=== PATIENT | female | born 1935 | race Caucasian/White ===

== ENCOUNTER 2018-09-01 22:50 | Inpatient (IN) | payer MEDICARE, BC, MEDICAID ==
[~2018-09-01] VITALS: Ht 172.7 cm; Wt 84.3 kg
--- NOTE | ~2018-09-01 | PN ---
PATIENT:VALENTIN MONTILLA MEDICAL RECORD: [id number] LOCATION:LINDA David112 ADMISSION DATE: 09/01/18 PROGRESS NOTE DATE OF SERVICE: 09/03/2018 SUBJECTIVE: Ms. Montilla is an 83-year-old female with just a 1-year history of dementia despite her what is seemingly long-term difficulties. foster care worker spoken to daughter yesterday, who reports basically in the last 2 years a couple of nursing homes, which the patient failed miserably because of aggression and she now is in [facility]. The patient had worked as an CAMPAIGN ASSISTANT. She did not have a formal psych history, but family described her as very controlling and irritable. She continues to be verbally aggressive, cursing, demanding. As she does have a very constant supervision, she seems to be less able at least to be physically aggressive, but seems to be attempting so less as well. She slept 4.25 hours last night, eating 125% and 75%. Last bowel movement on the . OBJECTIVE: LATEST VITAL SIGNS: 98.1, 75, 20, 140/79, and 96%. ASSESSMENT: Unchanged. PLAN: Continue current treatment plan. Continue to monitor for agitation and aggression, which are very much present. Risperdal was changed to Geodon yesterday. Would advise going up on that as necessary to control the patient's behavior and as her Depakote trough, which is 55.4, there is room to increase that as well. Discussed with nursing. Chart reviewed and patient interviewed. TRANSINT:[id number] Voice Confirmation ID: [id number] DOCUMENT ID: [id number] CAHDD MOYER MD CC: [id number] DICTATION DATE: 09/03/18 0746 DRY HEAT CABINET ATTENDANT: 09/03/18 1431 ADM IN [facility] [address] [place] [address]
--- NOTE | ~2018-09-01 | PN ---
PATIENT:VALENTIN YEUNG [place] MEDICAL RECORD: [id number] LOCATION:LINDA David112 ADMISSION DATE: 09/01/18 PROGRESS NOTE DATE OF SERVICE: 09/02/2018 No dictation. TRANSINT:[id number] Voice Confirmation ID: [id number] DOCUMENT ID: [id number] CHADD MOYER MD CC: [id number] DICTATION DATE: 09/02/18 1627 FURNITURE CLEANER: 09/02/181953 ADM IN [place] [id number] [place] [address]
[~2018-09-01 22:50] MED LIST: CENTRUM COMPLE1 EACH PO; CYMBALTA30 MG PO; FOLIC ACID1 MG PO; MIRALAX17 GM PO; PROTONIX40 MG PO; SYNTHROID100 MCG PO; VOLTAREN75 MG PO; XANAX0.5 MG PO; ZOLOFT100 MG PO
[2018-09-01] MEDS ORDERED: TYLENOL650 MG RC (23:09)
[2018-09-01] MEDS ORDERED: SCOT-TUSSI10 MG/5 ML PO (23:10)
[2018-09-01] MEDS ORDERED: BENADRYL25 MG PO (23:12)
[2018-09-01] MEDS ORDERED: BUSPIRONE HCL7.5 MG PO (23:12)
[2018-09-01] MEDS ORDERED: CELEBREX 100 M100 MG PO (23:13)
[2018-09-01] MEDS ORDERED: DEPAKOTE125 MG PO ×2 (23:15→23:16)
[2018-09-01] MEDS ORDERED: DONEPEZIL HCL10 MG PO (23:16)
[2018-09-01] MEDS ORDERED: DULCOLAX10 MG/SUPP RC (23:17)
[2018-09-01] MEDS ORDERED: FERROUS SULFAT325 MG PO (23:18)
[2018-09-01] MEDS ORDERED: GENTAMICIN 0.3 %5 ML EACH EYE (23:21)
[2018-09-01] MEDS ORDERED: ADVIL200 MG PO (23:22)
[2018-09-01] MEDS ORDERED: FUROSEMIDE20 MG PO (23:22)
[2018-09-01] MEDS ORDERED: MAALOX ADVANCE355 ML PO (23:24)
[2018-09-01] MEDS ORDERED: IMODIUM2 MG PO (23:24)
[2018-09-01] MEDS ORDERED: MILK OF MAGNESI30 ML PO (23:25)
[2018-09-01] MEDS ORDERED: PHENERGAN25 M1 PO (23:26)
[2018-09-01] MEDS ORDERED: PHENERGAN25 MG RC (23:26)
[2018-09-01] MEDS ORDERED: REMERON15 MG PO (23:27)
[2018-09-01] MEDS ORDERED: RISPERDAL1 MG PO (23:27)
[2018-09-01] MEDS ORDERED: ACETAMINOPHEN325 MG PO (23:28)
[2018-09-01] MEDS ORDERED: ASCORBIC ACID500 MG PO (23:29)
[2018-09-01] MEDS ORDERED: ZOFRAN4 MG PO (23:29)
--- NOTE | 2018-09-02 00:40 | NUR ---
PATIENT ARRIVE VIA AMBULANCE FROM [facility] IN [facility] AT 22:00, PATIENTY HAD BECOME AGGRESSIVE WITH OTHER RESIDENTS, TELEPHONE CONSENT FROM DAUGHTER AND XUAN VERDUGO, CODE WORD IS 'QUILT', CODE STATUS IS DNR, VITAL SIGNS ON ARRIVAL T 98.0. BP 132/62. P 82. R 18, O2 93% ON RA, PATIENT WAS SLEEPING WHEN SHE ARRIVED AND DID NOT WAKE UP WHEN TRANSFERRED TO BED, WILL CONTINUE TO MONITOR.
[2018-09-02 02:00] VITALS: BP 132/62; BMI 23.6
--- NOTE | 2018-09-02 07:25 | NUR ---
PT WAS CURSING AT OTHER PATIENTS, AT STAFF. COMBATIVE WITH STAFF. SPITTING AND THREATENING TO HIT OTHER PATIENTS. WANDERING IN THE HALLWAY EXITING SEEKING. ATIVAN 0.5 MG IM GIVEN PER DR. CASTELLANOS ORDER. WILL REASSESS Q 1 HOUR. WILL CONT PLAN OF CARE.
[2018-09-02 07:41] VITALS: BP 185/76
[2018-09-02 07:45] LABS: BASOPHILS 0.6 % (0-2); EOSINOPHILS 8.7 % (0-7); HEMATOCRIT 31.5 % (36.0-48.0); HEMOGLOBIN 9.8 g/dL (12-16); LYMPHOCYTES 36.6 % (15-50); MCH 27.8 pg (26.0-34.0); MCHC 31.1 g/dL (31.0-37.0); MCV 89.2 fL (80.0-100.0); MEAN PLATELET VOLUME 10.3 fL (7.4-10.4); MONOCYTES 6.1 % (2-11); RBC 3.53 10x6/uL (4.00-5.40); RDW 14.2 % (11.5-14.5); WBC 3.1 10x3/uL (4.8-10.8)
[2018-09-02 07:52] LABS: PLATELET COUNT 146 10x3/uL (130-400)
[2018-09-02 08:08] LABS: ALBUMIN 2.4 g/dL (3.4-5.0); ALKALINE PHOSPHATASE 44 U/L (46-116); ALT (SGPT) 17 U/L (10-68); BILIRUBIN - TOTAL 0.19 mg/dL (0.2-1.3); CALC OSMOLALITY 290 mosm/kg (275-300); CALCIUM 8.1 mg/dL (8.5-10.1); CARBON DIOXIDE 33.6 mmol/L (21.0-32.0); CHLORIDE - SERUM 108 mmol/L (98-107); CHOL - HDL RATIO 2.2 ratio (2.3-4.1); CHOLESTEROL, TOTAL 157 mg/dL (0-200); CREATININE - SERUM 0.7 mg/dL (0.6-1.3); GLUCOSE 79 mg/dL (74-106); HDL CHOLESTEROL 70 mg/dL (32-96); LDL CHOLESTEROL 74 mg/dL (0-100); LDL-HDL RATIO 1.1 ratio (1.5-3.5); POTASSIUM - SERUM 4.1 mmol/L (3.5-5.1); PROTEIN - SERUM 5.4 g/dL (6.4-8.2); SODIUM 143 mmol/L (136-145); THYROID STIMULATING HORMONE 7.15 uIU/mL (0.36-3.74); TRIGLYCERIDE 65 mg/dL (30-200); UREA NITROGEN 31 mg/dL (7-18); eGFR NON AFRICAN AMERICAN 84 mL/min (90-120)
--- NOTE | 2018-09-02 10:18 | NUR ---
The patient is spitting and she is screaming and she is acting out, turning the table over. Provided Ativan 0.5 mg IM in right hip.
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
--- NOTE | 2018-09-02 17:43 | NUR ---
PATIENT SITTING IN THE DAY AREA WITH PEERS. RESP EVEN AND NONLABORED. NO ACUTE DISTRESS NOTED. PAITENT BEHAVIOR HAS BEEN MORE CALM SINCE GEODON 20 MG IM WAS GIVEN EARLIER IN SHIFT. PT HAS BEEN MED COMPLAINT. SWALLOWED MEDICATION VERY WELL. PT IN A RECLINER CHAIR. ALARM IN PLACE AND ACTIVE. PT ATE MEALS. WILL CONT PLAN OF CARE. WILL CONT TO MONITOR Q 15 MINS.
[2018-09-02 20:00] VITALS: BP 140/79
[2018-09-02 22:04] VITALS: BMI 24.4
--- NOTE | 2018-09-02 23:00 | NUR ---
B) Patient is alert and oriented to self, restless and needy, screaming out for help from bad dreams, I) Administered scheduled medications as ordered, monitored for safety R) Mediation compliant, difficult to communicate with P) Continue plan of care.
[2018-09-03 07:18] LABS: RAPID PLASMA REAGIN Non Reactive (Non Reactive)
--- NOTE | 2018-09-03 07:20 | NUR ---
REC'D PT LAYING IN BED WITH EYES CLOSED. RESP EVEN AND NONLABORED. NO ACUTE DISTRESS NOTED. NO BEHAVIORS NOTED. BED ALARM IN PLACE AND ACTIVE. SIDE RAIL UP 2X. CL IN REACH. WILL CONT TO MONITOR Q 15 MINS FOR SAFETY. WILL CONT PLAN OF CARE.
[2018-09-03 08:03] LABS: BASOPHILS 0.8 % (0-2); EOSINOPHILS 4.9 % (0-7); HEMATOCRIT 36.5 % (36.0-48.0); HEMOGLOBIN 11.6 g/dL (12-16); IMMATURE GRANULOCYTES 0.2 % (0-5); LYMPHOCYTES 33.8 % (15-50); MCHC 31.8 g/dL (31.0-37.0); MEAN PLATELET VOLUME 10.7 fL (7.4-10.4); MONOCYTES 5.3 % (2-11); RBC 4.15 10x6/uL (4.00-5.40); RDW 14.2 % (11.5-14.5)
[2018-09-03 08:08] LABS: PLATELET COUNT 206 10x3/uL (130-400); WBC 5.3 10x3/uL (4.8-10.8)
[2018-09-03 08:28] LABS: % SATURATION 18 % (15-55); IRON 51 ug/dl (35-150); TOTAL IRON BIND CAPACITY 275 ug/dl (260-445); UNSAT IRON BIND CAPACITY 224 ug/dl (150-375)
[2018-09-03 08:42] VITALS: BP 135/78
[2018-09-03 08:42] LABS: FERRITIN 71 ng/mL (3-244); LDH 242 U/L (81-234)
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
[2018-09-03 11:09] LABS: FOLATE (FOLIC ACID) - SERUM 6.6 ng/mL (>3.0)
--- NOTE | 2018-09-03 11:17 | NUR ---
PRN EFFECTIVE AT THIS TIME.
--- NOTE | 2018-09-03 14:00 | NUR ---
Obtained a clean catch urine for a UA and culture.
[2018-09-03 14:58] LABS: APPEARANCE CLEAR (CLEAR); BILIRUBIN NEGATIVE (NEGATIVE); COLOR YELLOW (YELLOW); GLUCOSE NEGATIVE (NEGATIVE); KETONE NEGATIVE (NEGATIVE); NITRITE NEGATIVE (NEGATIVE); PROTEIN NEGATIVE (NEGATIVE); SPECIFIC GRAVITY 1.005 (1.005-1.020); UROBILINOGEN NORMAL (NORMAL)
--- NOTE | 2018-09-03 18:48 | NUR ---
PT DRINKING WATER AT THIS TIME. PT HAS BEEN SLEEPING ON AND OFF DURING SHIFT. RESP EVEN AND NONLABORED. NO ACUTE DISTRESS NOTED. NO BEHAVIORS NOTED SINCE PRN WAS ADMINISTERED EARLIER THIS SHIFT. WALKED THIS SHIFT. CHAIR ALARM IN PLACE AND ACTIVE. MED COMPLIANT. WILL CONT PLAN OF CARE. WILL CONT TO MONITOR Q 15 MINS FOR SAFETY.
[2018-09-03 20:21] VITALS: BP 151/60
--- NOTE | 2018-09-04 07:25 | NUR ---
REC'D PT SITTING IN CHAIR BY NURSES STATION. RESP EVEN AND NONLABORED. NO ACUTE DISTRESS NOTED. NO BEHAVIORS NOTED FROM INDUSTRIAL RECRUITER. MED COMPLIANT. CHAIR ALARM IN PLACE AND ACTIVE. WILL CONT PLAN OF CARE. WILL CONT TO MONITOR Q 15 MINS FOR SAFETY.
[2018-09-04 08:00] VITALS: BP 146/51
[2018-09-04 17:35] LABS: THYROID STIMULATING HORMONE 9.73 uIU/mL (0.36-3.74); VALPROIC ACID (DEPAKOTE) 25.7 ug/mL (50.0-100.0)
--- NOTE | 2018-09-04 18:03 | NUR ---
PATIENT SITTING RECLINER CHAIR YELLING OUT "COME TURN THIS THING OFF" PATIENT IS VERY LABILE. PRN ADMINISTRED AT [address] GALVEZ ORDER. PRN WAS EFFECTIVE. PT ATE BREAKFAST AND DINNER. PT DID NOT RECIEVE AM MEDICATION DUE TO BEING DROWSY THIS AM. BEHAVIORS NOTED THIS SHIFT. SPITTING, BEING COMBATIVE WHEN ATTEMPTED TO REDIRECT. CHAIR ALARM IN PLACE AND ACTIVE. ASSIST TO STAND. CONT PLAN OF CARE. WILL CONT TO MONITOR Q 15 MINS FOR SAFETY.
--- NOTE | 2018-09-04 21:48 | NUR ---
RECEIVED IN DAYROOM. SITTTING IN A CHAIR WITH PEERS BY HER SIDE. CALM AND COOPERATIVE WITH CARE AND ASSESSMENT. NO SIGNS OF AGGRESSION. REDIRECT AND REORIENT NEEDED. CONTINUES TO REST CALMLY. CONTINUE PLAN OF CARE
[2018-09-04 23:51] VITALS: BP 159/63
[2018-09-05 08:52] VITALS: BP 165/73
[2018-09-05 10:53] VITALS: Ht 172.7 cm; Wt 84.3 kg
--- NOTE | 2018-09-05 14:53 | PN ---
PATIENT:VALENTIN YEUNG MEDICAL RECORD: [id number] LOCATION:LINDA De Souza ADMISSION DATE: 09/01/18 PROGRESS NOTE DATE OF SERVICE: 09/04/2018 SUBJECTIVE: The patient's case was discussed with staff. She has no new complaint. OBJECTIVE: The patient is in good behavioral control. She has limited insight about her condition. She is tolerating her medicines well. She received a p.r.n. dose of Haldol and Ativan earlier today for some agitated behavior. It seems to have been effective. I was not here at the time and she is quite cooperative now. ASSESSMENT: Senile dementia of the Alzheimer's type with behavioral disturbances. PLAN: The patient will have a Depakote level checked. I am also going to check her thyroid functions. Her long-term prognosis is guarded. TRANSINT:[id number] Voice Confirmation ID: [id number] DOCUMENT ID: [id number] KAYLA GALVEZ MD at 1453 CC: [id number] DICTATION DATE: 09/04/18 1552 SKY DIVER: 09/04/18 1641 ADM IN [facility] [address] [place] [id number]
[2018-09-05 20:06] VITALS: BP 153/53
--- NOTE | 2018-09-05 23:45 | NUR ---
PATIENT IS EXTREMLY LABILE, TEARFUL, AND CRIES OUT "AFIA, HELP ME" QUITE FREQUENTLY. ATIVAN/HALDOL GIVEN AT 2000 THIS SHIFT, WITH RESULTS THAT LASTED ABOUT TWO HOURS. PATIENT IS DIFFICULT TO CONSOLE. WILL FOLLOW POC
--- NOTE | 2018-09-06 07:38 | NUR ---
SITTING IN HALLWAY IN RECLINER, TEARFUL AND STARTED SCREAMING OUT. UNABLE TO CALM HER DOWN. ATIVAN 0.5 MG PO GIVEN.
--- NOTE | 2018-09-06 08:00 | NUR ---
CAMED DOWN SOME, BUT DOING LESS SCREAMING.
[2018-09-06 08:32] VITALS: BP 172/65
--- NOTE | 2018-09-06 12:30 | NUR ---
CALMER ,BUT AWAKE AND EATING HER LUNCH.
--- NOTE | 2018-09-06 15:05 | PN ---
PATIENT:VALENTIN YEUNG MEDICAL RECORD: [id number] LOCATION:LINDA De Souza ADMISSION DATE: 09/01/18 PROGRESS NOTE DATE OF SERVICE: 09/05/2018 SUBJECTIVE: The patient's case was discussed with staff. She has no new complaint. OBJECTIVE: The patient denies intent to harm herself or others. She is quite confused. ASSESSMENT: Senile dementia of the Alzheimer's type with behavioral disturbances. PLAN: The patient is taking BuSpar at a relatively low dose. I do think that this is providing much in the way of clinical benefit and based on that, I am going to discontinue the medicine. TRANSINT:[id number] Voice Confirmation ID: [id number] DOCUMENT ID: [id number] KAYLA GALVEZ MD at 1505 CC: [id number] DICTATION DATE: 09/05/18 1521 PILE DRIVER ENGINEER: 09/05/18 1529 ADM IN [place] [id number] [place] [address]
--- NOTE | 2018-09-06 21:13 | NUR ---
RECEIVED IN HALLWAY. RESTING QUIETLY IN A RECLINER. CALM AND COOPERATIBE WITH CARE. NOT YELLING OUT. NO SIGNS OF AGGRESSION. REDIRECT AND REORIENT NEEDED. RESTING IN BED WITH EYES CLOSED AT THIS TIME. CONTINUE PLAN OF CARE
[2018-09-07 08:31] VITALS: BP 92/50
--- NOTE | 2018-09-07 10:00 | NUR ---
RECEIVED PATIENT IN DINING ROOM FOR B'FAST, ALERT, AGITATED, NO AGGRESSION NOTED. MEDS ADMIN PER ORDERS WITH EXCEPTION OF GEODON WHICH PATIENT REFUSED AND THREW THE MED. OCCASIONALLY YELLS ALOUD IF IN FEAR OF SOMETHING. CONT POC, ENCOURAGING INCREASED PARTICIPATION AND MED COMPLIANCE.
--- NOTE | 2018-09-07 11:30 | NUR ---
REFUSED GEODON DURING MORNING MED PASS. CURRENTLY SITTING IN DINING ROOM, SCREAMING ALOUD, UNABLE TO REDIRECT, THROWS WATER CUPS, MEDS, ETC. HALDOL 2 MG AND ATIVAN 0.5 MG ADMIN IM RIGHT DELTOID. DEENA WELL.
--- NOTE | 2018-09-07 13:17 | PN ---
PATIENT:VALENTIN YEUNG [place] MEDICAL RECORD: [id number] LOCATION:LINDA De Souza ADMISSION DATE: 09/01/18 PROGRESS NOTE DATE OF SERVICE: 09/06/2018 SUBJECTIVE: The patient's case was discussed with staff. She has no new complaint. OBJECTIVE: The patient denies intent to harm herself or others. She is tolerating her medicines well. ASSESSMENT: Senile dementia of the Alzheimer's type with behavioral disturbances. PLAN: The patient will be maintained on current medicines, which I have reviewed. Her long-term prognosis is guarded. TRANSINT:[id number] Voice Confirmation ID: [id number] DOCUMENT ID: [id number] KAYLA GALVEZ MD at 1317 CC: [id number] DICTATION DATE: 09/06/18 1556 RN MATERNITY: 09/06/18 1603 ADM IN [place] [id number] [place] [address]
--- NOTE | 2018-09-07 19:42 | NUR ---
RECEIVED IN HALLWAY OUTSIDE OF NURSES STATION. YELLING OUT. COOPERATIVE WITH CARE AND ASSESSMENT. NO AGGRESSIVE BEHAVIORS. REDIRECT AND REORIENT NEEDED. RESTING IN BED WITH EYES OPEN AND YELLING OUT AT THIS TIME. CONTINUE PLAN OF CARE.
--- NOTE | 2018-09-08 12:42 | NUR ---
The patient defacated and did obtain a sample to send for occult stool test.
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
--- NOTE | 2018-09-08 13:02 | NUR ---
The patient is anxious and she is yelling. She gets the other patients upset. Did provide her Ativan 0.5 mg PO. See JAMIE
--- NOTE | 2018-09-08 13:25 | NUR ---
The patient continues to yell and scream. Will have staff take her to the bathroom.
--- NOTE | 2018-09-08 13:47 | PN ---
PATIENT:VALENTIN YEUNG MEDICAL RECORD: [id number] LOCATION:LINDA De Souza ADMISSION DATE: 09/01/18 PROGRESS NOTE DATE OF SERVICE: 09/07/2018 SUBJECTIVE: The patient's case was discussed with staff. She has no new complaint. OBJECTIVE: The patient is in good behavioral control. She has not been actively aggressive. ASSESSMENT: Senile dementia of the Alzheimer's type with behavioral disturbances. PLAN: The patient is going to be put on Celexa at a dose of 10 mg daily. She will be monitored for clinical changes associated with its use. Her long-term prognosis is guarded. TRANSINT:[id number] Voice Confirmation ID: [id number] DOCUMENT ID: [id number] KAYLA GALVEZ MD at 1347 CC: [id number] DICTATION DATE: 09/07/18 1653 ELECTRICAL ELECTRONICS TECHNICIAN: 09/07/18 2205 ADM IN [place] [id number] [place] [address]
[2018-09-08 23:17] VITALS: BP 130/70
--- NOTE | 2018-09-09 01:34 | NUR ---
B) patient is alert and oriented to self, anxious and yelling out for help without any specific needs, I) Administered scheeduled medications as ordered, redirected as needed, monitored for safety R) Mediation compliant, difficult to communicate with P) Continue plan of care.
[2018-09-09 09:21] VITALS: BP 130/53
--- NOTE | 2018-09-09 11:53 | NUR ---
GOOD RESPONSE TO ATIVAN AND HALDOL.RESTING IN RECLINER WITH EYES CLOSED.
--- NOTE | 2018-09-09 14:15 | PN ---
PATIENT:VALENTIN YEUNG MEDICAL RECORD: [id number] LOCATION:LINDA De Souza ADMISSION DATE: 09/01/18 PROGRESS NOTE DATE OF SERVICE: 09/08/2018 SUBJECTIVE: The patient's case was discussed with staff. She has no new complaint. OBJECTIVE: The patient is fairly impaired cognitively, but her behavior has been better. She has been less inhibited and less disruptive. Unfortunately, she continues to be very impaired cognitively. Depakote level a couple of days ago was subtherapeutic. I am not sure how to explain that. It seems inconsistent with the amount of medicine she is taking and I do not really think she has the cognition to cheek her medication, so I am going to ask for another one. TRANSINT:[id number] Voice Confirmation ID: [id number] DOCUMENT ID: [id number] KAYLA GALVEZ MD at 1415 CC: [id number] DICTATION DATE: 09/08/18 1537 PM TECHNICIAN: 09/08/182027 ADM IN [place] [id number] [place] [id number]
--- NOTE | 2018-09-09 14:18 | NUR ---
ATIVAN 0.5MG AND HALDOL 2MG IM GIVEN FOR SPITTING AND HITTING AT STAFF.ATTEMPTING TO PULL CLOTHES OFF.WILL NOT REDIRECT.
--- NOTE | 2018-09-09 18:23 | NUR ---
ORIENTED TO SELF ONLY.INCONTINENT OF BOWEL AND BLADDER.IS AGGRESSIVE AT TIMES,SPITTING AND HITTING AT STAFF.YELLING OUT AND TEARFUL AT TIMES.TAKES MEDS WHOLE.WILL CONTINUE WITH PLAN OF CARE,MONITOR FOR CHANGES AND SAFETY.
[2018-09-09 20:00] VITALS: BP 130/50
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
[2018-09-10 08:08] VITALS: BP 138/55
[2018-09-10 09:45] VITALS: BP 138/55
--- NOTE | 2018-09-10 10:00 | NUR ---
RECEIVED PATIENT IN DINING ROOM FOR B'FAST, RESTING WITH EYES CLOSED, REFUSED B'FAST, UNABLE TO TAKE MORNING MEDS DUE TO BEING ASLEEP. NO AGGRESSION NOTED. CONT POC, MONITORING FOR AGGRESSION.
--- NOTE | 2018-09-10 10:36 | PN ---
PATIENT:VALENTIN YEUNG [place] MEDICAL RECORD: [id number] LOCATION:LINDA De Souza ADMISSION DATE: 09/01/18 PROGRESS NOTE DATE OF SERVICE: 09/09/2018 SUBJECTIVE: The patient's case was discussed with staff. She has no new complaint. OBJECTIVE: The patient is in good behavioral control. She is not eating very well, but it is not consistent enough to put her in any serious risk at this point. She is calmer since the addition of the Klonopin a couple of days ago. I do plan to treat her with Neurontin for her disruptive behaviors. At this point, her Depakote level is therapeutic. I will maintain current medicines today. ASSESSMENT: Senile dementia of the Alzheimer's type with behavioral disturbances. PLAN: Current medicines and therapies have been reviewed and will be maintained. TRANSINT:[id number] Voice Confirmation ID: [id number] DOCUMENT ID: [id number] KAYLA GALVEZ MD at 1036 CC: [id number] DICTATION DATE: 09/09/18 1550 RESERVE OFFICER: 09/09/18 2229 ADM IN [facility] [address] [place] [address]
[2018-09-10 20:00] VITALS: BP 124/45
--- NOTE | 2018-09-10 23:33 | NUR ---
PATIENT IS CONFUSED, EMOTIONAL NORMAL, HALDOL/ATIVAN GIVEN IM @ 2120. GOOD RESPONSE TO IM INJECTION AT THIS TIME. WILL MONITOR.
[2018-09-11 07:00] VITALS: BP 132/57
--- NOTE | 2018-09-11 09:40 | PN ---
PATIENT:VALENTIN YEUNG MEDICAL RECORD: [id number] LOCATION:LINDA De Souza ADMISSION DATE: 09/01/18 PROGRESS NOTE DATE OF SERVICE: 09/10/2018 SUBJECTIVE: The patient's case was discussed with staff. She has no new complaint. OBJECTIVE: The patient is in good behavioral control. She has very limited insight about her condition. She does seem to be somewhat sedated. ASSESSMENT: Senile dementia of the Alzheimer's type with behavioral disturbances. PLAN: The patient will have her Klonopin discontinued. She will be monitored for clinical changes associated with that. Her long-term prognosis is guarded. TRANSINT:[id number] Voice Confirmation ID: [id number] DOCUMENT ID: [id number] KAYLA GALVEZ MD at 0940 CC: [id number] DICTATION DATE: 09/10/18 1218 ELIGIBILITY EXAMINER: 09/10/18 1658 ADM IN [place] [id number] [place] [address]
--- NOTE | 2018-09-11 14:09 | NUR ---
PT IS ALERT AND ORIENTED TO PERSON ONLY. PT IS VERY CONFUSED, ALOT CALMER TODAY. CALM AND COOPERATIVE WITH ASSESSMENT. MED COMPLIANT. REDIRECT AND REORIENT NEEDED. FALL PRECAUTIONS IN PLACE. WILL CPOC.
[2018-09-11 20:08] VITALS: BP 122/48
--- NOTE | 2018-09-11 21:38 | NUR ---
RECEIVED IN DAYROOM RESTING QUIWTLY IN A CHAIR WITH PEERS BY HER SIDE. NO SIGNS OF AGGRESSION. CALM AND COOPERATIVE WITH CARE AND ASSESSMENT. REDIRECT AND REORIENT NEEDED. CONTINUES TO SIT CALMLY. CONTINUE PLAN OF CARE
[2018-09-12 07:00] VITALS: BP 97/36
--- NOTE | 2018-09-12 13:18 | NUR ---
Nutrition follow up Regular diet with 32% average po intake BM yesterday Weight 185lb-it appears pt has gained weight however admit weight was stated Will add Ensure REC: May want to consider Megace RD following
--- NOTE | 2018-09-12 13:51 | NUR ---
RECEIVED PATIENT IN DINING ROOM FOR B'FAST, ALERT, CALM, COOPERATIVE, CONFUSED. MEDS ADMIN PER ORDERS WITH COMPLETE MED COMPLIANCE NOTED. COOPERATIVE WITH CARE. CONT POC, MONITORING FOR AGGRESSION.
--- NOTE | 2018-09-12 14:35 | PN ---
PATIENT:VALENTIN YEUNG [place] MEDICAL RECORD: [id number] LOCATION:LINDA De Souza ADMISSION DATE: 09/01/18 PROGRESS NOTE DATE OF SERVICE: 09/11/2018 SUBJECTIVE: The patient's case was discussed with staff. She has no new complaint. OBJECTIVE: The patient denies intent to harm herself or others. She has not been aggressive today. She is severely impaired cognitively. ASSESSMENT: Senile dementia of the Alzheimer's type with behavioral disturbances. PLAN: Current medicines and therapies have been reviewed and will be maintained. Long-term prognosis is guarded. TRANSINT:[id number] Voice Confirmation ID: [id number] DOCUMENT ID: [id number] KAYLA GALVEZ MD at 1435 CC: [id number] DICTATION DATE: 09/11/18 1010 RETORT COOLER: 09/11/18 1400 ADM IN [place] [id number] [place] [address]
--- NOTE | 2018-09-12 21:35 | NUR ---
RECEIVED IN DAYROOM. RESTING IN RECLINER WITH EYES OPEN. CALM AND COOPERATIVE WITH CARE AND ASSESSMENT. CRYING. UNABLE TO BE CONSOLED. NO AGGRESSIVE BEHAVIORS. REDIRECT AND REORIENT NEEDED. CONTINUES TO SIT IN RECLINER AND CRY. CONTINUE PLAN OF CARE.
[2018-09-13 02:22] VITALS: BP 144/67
[2018-09-13 08:00] VITALS: BP 130/62
--- NOTE | 2018-09-13 09:41 | PN ---
PATIENT:VALENTIN YEUNG MEDICAL RECORD: [id number] LOCATION:LINDA De Souza ADMISSION DATE: 09/01/18 PROGRESS NOTE DATE OF SERVICE: 09/12/2018 SUBJECTIVE: The patient's case was discussed with staff. She has no new complaint. OBJECTIVE: The patient is in good behavioral control with very limited insight about her condition. ASSESSMENT: Senile dementia of the Alzheimer's type with behavioral disturbances. PLAN: The patient has a therapeutic Depakote level. I have reviewed her current medicines and will maintain them. I am anticipating she can return [facility] to the [facility]. TRANSINT:[id number] Voice Confirmation ID: [id number] DOCUMENT ID: [id number] KAYLA GALVEZ MD at 0941 CC: [id number] DICTATION DATE: 09/12/18 1456 PC NETWORK TECHNICIAN: 09/12/18 1502 ADM IN [place] [id number] [place] [id number]
--- NOTE | 2018-09-13 15:06 | NUR ---
PT IS ALERT AND ORIENTED TO PERSON ONLY. PT IS VERY CONFUSED, ALOT CALMER TODAY. PT WAS TALKING AND INTERACTING WITH PEERS DURING GROUP. MED COMPLIANT. REDIRECT AND REORIENT NEEDED. FALL PRECAUTIONS IN PLACE. WILL CPOC.
--- NOTE | 2018-09-13 15:44 | NUR ---
PT IS ALERT AND ORIENTED TO PERSON ONLY. PT IS SITTING IN RECLINING CHAIR IN DAYROOM WATCHING TV. PT IS CALM AND COOPERATIVE WITH ASSESSMENT AT THIS TIME. REDIRECT AND REORIENT NEEDED. MED COMPLIANT. FALL PRECAUTIONS IN PLACE. WILL CPOC.
--- NOTE | 2018-09-13 23:48 | NUR ---
RECEIVED IN HALLWAY OUTSIDE OF NURSES STATION. SITTING IN RECLINER AND YELLING OUT. COOPERATIVE WITH CARE AND ASSESSMENT. NO AGGRESSIVE BEHAVIORS. REDIRECT AND REORIENT NEEDED. RESTING IN BED WITH EYES CLOSED AT THIS TIME. CONTINUE PLAN OF CARE.
[2018-09-14 09:00] VITALS: BP 138/53
--- NOTE | 2018-09-14 12:50 | PN ---
PATIENT:VALENTIN YEUNG [place] MEDICAL RECORD: [id number] LOCATION:LINDA De Souza ADMISSION DATE: 09/01/18 PROGRESS NOTE DATE OF SERVICE: 09/13/2018 SUBJECTIVE: The patient's case was discussed with staff. She has no new complaint. OBJECTIVE: The patient has limited insight about her condition. She is difficult to redirect. ASSESSMENT: Senile dementia of the Alzheimer's type with behavioral disturbances. PLAN: Current medicines and therapies have been reviewed, both will be maintained. Long-term prognosis is guarded. TRANSINT:[id number] Voice Confirmation ID: [id number] DOCUMENT ID: [id number] KAYLA GALVEZ MD at 1250 CC: [id number] DICTATION DATE: 09/13/18 1147 MUSHROOM PRESS OPERATOR: 09/13/18 1200 ADM IN [address] [place] [address]
[2018-09-14] MEDS ORDERED: LOPRESSOR25 MG PO (15:35)
[2018-09-14] MEDS ORDERED: Aricept PO (15:35)
[2018-09-14] MEDS ORDERED: CELEXA20 MG PO (15:36)
[2018-09-14] MEDS ORDERED: DEPAKOTE SPRINKLE PO (15:36)
[2018-09-14] MEDS ORDERED: GEODON20 MG PO (15:36)
--- NOTE | 2018-09-14 19:02 | NUR ---
ORIENTED TO SELF.COMPLIANT WITH STAFF AND MEDS.WILL CONTINUE WITH PLAN OF CARE,MONITOR FOR CHANGES AND SAFETY.
[2018-09-14 20:00] VITALS: BP 149/57
--- NOTE | 2018-09-14 21:14 | NUR ---
RECEIVED IN DAYROOM. SITTING QUIETLY AND WATCHING TV. CALM AND COOPERATIVE WITH CARE AND ASSESSMENT. NO AGGRESSIVE BEHAVIORS. REDIRECT AND REORIENT NEEDED. CONTINUES TO REST IN RECLINER AND WATCH TV AT THIS TIME. CONTINUE PLAN OF CARE.
[2018-09-15 08:37] VITALS: BP 126/60
--- NOTE | 2018-09-15 11:50 | NUR ---
REPORT CALLED TO ROMI VICK AT [facility].
--- NOTE | 2018-09-15 13:45 | NUR ---
ORIENTED TO SELF ONLY.COMPLIANT WITH STAFF AND MEDS.NO AGGRESSION OBSERVED.DISCHARGED TO [facility]IA VAN.HAS ALL PERSONAL ITEMS AND INSTRUCTIONS.
--- NOTE | 2018-09-15 15:03 | PN ---
PATIENT:VALENTIN YEUNG [place] MEDICAL RECORD: [id number] LOCATION:LINDA De Souza ADMISSION DATE: 09/01/18 PROGRESS NOTE DATE OF SERVICE: 09/14/2018 SUBJECTIVE: The patient's case was discussed with staff. She has no new complaint. OBJECTIVE: The patient has been in good behavioral control. She has not been aggressive. ASSESSMENT: Senile dementia of the Alzheimer's type with behavioral disturbances. PLAN: Current medicines have been reviewed and will be maintained. Long-term prognosis is guarded. TRANSINT:[id number] Voice Confirmation ID: [id number] DOCUMENT ID: [id number] KAYLA GALVEZ MD at 1503 CC: [id number] DICTATION DATE: 09/14/18 1534 SAND TECHNICIAN: 09/14/18 2333 ADM IN [id number] [place] [address]
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
== END 2018-09-15 13:45 | DRG 56 ==
LOC: D.PSYCH 22:50
PROVIDERS: Family Medicine; ADMIT Psychiatry & Neurology Psychiatry; ATTEND Psychiatry & Neurology Psychiatry
DX: G30.1 Alzheimer's disease with late onset (principal); K85.90 Acute pancreatitis without necrosis or infection, unspecified; F02.81 Dementia in other diseases classified elsewhere, unspecified severity, with behavioral disturbance; E03.9 Hypothyroidism, unspecified; G47.30 Sleep apnea, unspecified; F32.9 Major depressive disorder, single episode, unspecified; K59.09 Other constipation; I10 Essential (primary) hypertension; D64.9 Anemia, unspecified

== ENCOUNTER 2019-01-16 11:24 | Inpatient (IN) | payer MEDICARE, BC ==
[~2019-01-16] VITALS: Ht 172.7 cm; Wt 85.5 kg
[2019-01-16 11:15] VITALS: BP 139/49
--- NOTE | 2019-01-16 11:15 | NUR ---
ADMITTED AMBULATORY TO [facility] VIA VAN FROM [facility]. DX: AGGRESSIVE WITH STAFF AND ALTERED MENTAL STATUS. AMBULTORY WITH WALKER. CODE STATUS =DNR. CODE WORD=ALFONSO.
[~2019-01-16 11:24] MED LIST changes: +ACETAMINOPHEN325 MG PO; +ADVIL200 MG PO; +ASCORBIC ACID500 MG PO; +Aricept PO; +BENADRYL25 MG PO; +BUSPIRONE HCL7.5 MG PO; +CELEBREX 100 M100 MG PO; +CELEXA20 MG PO; +DEPAKOTE SPRINKLE PO; +DEPAKOTE125 MG PO; +DONEPEZIL HCL10 MG PO; +DULCOLAX10 MG/SUPP RC; +FERROUS SULFAT325 MG PO; +FUROSEMIDE20 MG PO; +GENTAMICIN 0.3 %5 ML EACH EYE; +GEODON20 MG PO; +IMODIUM2 MG PO; +LOPRESSOR25 MG PO; +MAALOX ADVANCE355 ML PO; +MILK OF MAGNESI30 ML PO; +PHENERGAN25 M1 PO; +PHENERGAN25 MG RC; +REMERON15 MG PO; +RISPERDAL1 MG PO; +SCOT-TUSSI10 MG/5 ML PO; +TYLENOL650 MG RC; +ZOFRAN4 MG PO
[2019-01-16] MEDS ORDERED: LASIX40 MG PO (16:15)
[2019-01-16] MEDS ORDERED: SEROQUEL25 MG PO (16:16)
[2019-01-16] MEDS ORDERED: NAMENDA5 MG PO (16:17)
[2019-01-16] MEDS ORDERED: PROTONIX40 MG PO (16:17)
[2019-01-16] MEDS ORDERED: NAMENDA10 MG PO (16:19)
[2019-01-16] MEDS ORDERED: TRAZODONE HCL150 MG (16:23)
[2019-01-16] MEDS ORDERED: TRAZODONE HCL150 MG PO (16:25)
[2019-01-16 17:04] LABS: APPEARANCE CLEAR (CLEAR); BILIRUBIN NEGATIVE (NEGATIVE); COLOR YELLOW (YELLOW); GLUCOSE NEGATIVE (NEGATIVE); KETONE NEGATIVE (NEGATIVE); NITRITE NEGATIVE (NEGATIVE); PROTEIN NEGATIVE (NEGATIVE); UROBILINOGEN NORMAL (NORMAL)
[2019-01-16 17:11] LABS: BASOPHILS 0.6 % (0-2); EOSINOPHILS 3.7 % (0-7); HEMATOCRIT 32.5 % (36.0-48.0); IMMATURE GRANULOCYTES 0.4 % (0-5); MCHC 30.8 g/dL (31.0-37.0); MCV 94.2 fL (80.0-100.0); MEAN PLATELET VOLUME 10.2 fL (7.4-10.4); NEUTROPHILS 57.3 % (40-80); PLATELET COUNT 167 10x3/uL (130-400); RBC 3.45 10x6/uL (4.00-5.40); RDW 14.2 % (11.5-14.5); WBC 4.8 10x3/uL (4.8-10.8)
[2019-01-16 18:02] LABS: ALBUMIN 2.8 g/dL (3.4-5.0); ANION GAP 6.3 mmol/L (8-16); BILIRUBIN - TOTAL 0.21 mg/dL (0.2-1.3); CALCIUM 8.2 mg/dL (8.5-10.1); CHOL - HDL RATIO 2.9 ratio (2.3-4.1); LDL-HDL RATIO 1.6 ratio (1.5-3.5); POTASSIUM - SERUM 4.3 mmol/L (3.5-5.1); THYROID STIMULATING HORMONE 3.35 uIU/mL (0.36-3.74); VALPROIC ACID (DEPAKOTE) 58.6 ug/mL (50.0-100.0)
--- NOTE | 2019-01-16 20:47 | NUR ---
RECEIVED BEDROOM. MHT ASSISTING TI BED. CALM AND COOPERATIVE WITH CARE AND ASSESSMENT. NO SIGNS OF AGGRESSION. REDIRECT AND REORIENT NEEDED. RESTING IN BED WITH EYES CLOSED AT THIS TIME. CONTINUE PLAN OF CARE
[2019-01-16 21:34] VITALS: BP 139/49; BMI 28.5
[2019-01-16 22:04] VITALS: BP 123/45
[2019-01-17 08:00] VITALS: BP 148/68
--- NOTE | 2019-01-17 09:00 | NUR ---
B) PATIENT IS AWAKE AND ALERT TO SELF ONLY. SHE IS PLEASANT AND COOPERATIVE WITH STAFF. NO AGGRESSION NOTED TODAY. I) ADMINISTERED SCHEDULED MEDICATIONS. REDIRECT AND REORIENT NEEDED. R) COMPLIANT WITH TAKING MEDICATIONS WHOLE. P) CONTINUE PLAN OF CARE
[2019-01-17 10:26] VITALS: Ht 172.7 cm; Wt 85.5 kg
--- NOTE | 2019-01-17 14:36 | PSY ---
PATIENT NAME:VALENTIN YEUNG MEDICAL RECORD: [id number] : 31 LOCATION:LINDA Maddox ADMISSION DATE: 01/16/19 ACCOUNT: [id number] PSYCHIATRIC EVALUATION DATE OF EVALUATION: 01/16/19 IDENTIFYING DATA: The patient is 84 years old and she is admitted to the hospital on a voluntary basis. CHIEF COMPLAINT: Aggression. HISTORY OF PRESENT ILLNESS: The patient lives in the [facility]. She has a known history of dementia. She has been agitated, disruptive, and aggressive with staff. She has also made a number of delusional statements about people not being who they appear to be. On interview, the patient is polite and cooperative, but clearly severely impaired and obviously has no recollection of the events that precipitated the admission. In fact, she does not even know her birthday and she is only oriented to person. PAST MEDICAL HISTORY: Significant for hypothyroidism, obstructive sleep apnea, and pancreatitis. PAST PSYCHIATRIC HISTORY: Significant for one previous hospitalization here 5 months ago for similar behaviors. At that time, she had been quite aggressive. She does have an established diagnosis of dementia. FAMILY HISTORY: Noncontributory. SOCIAL HISTORY: The patient lives in the ____ [facility]. Her daughter is involved with her care. She formerly worked as a licensed practical nurse. She has no history of drug or alcohol abuse. I have secondhand information from her family that she does have a history of being generally unpleasant and difficult throughout her adult life. It did not rise to a level of interfering with her functioning, but she apparently has a longstanding history of being unusually unpleasant. MENTAL STATUS EXAMINATION: The patient is awake, alert, and oriented to person only. Her mood is flat. Her affect is constricted. Thought processes are disorganized and her memory, concentration, and abstraction abilities are severely impaired. She denies any intent to harm herself or others. She denies psychotic symptoms. ASSETS: Supportive family members. LIABILITIES: Limited insight. DIAGNOSTIC IMPRESSION: AXIS I: Advanced major neurocognitive disorder of the Alzheimer's type with behavioral disturbances. AXIS II: None. AXIS III: Hypothyroidism. AXIS IV: Moderate stressors. AXIS V: Global assessment of functioning is 30. PLAN: At this time, the patient will be admitted to the hospital for a comprehensive medical, psychological, and social evaluation. She will be treated with both mood stabilizing and memory enhancing medications. Her long-term prognosis is guarded. TRANSINT:[id number] Voice Confirmation ID: [id number] DOCUMENT ID: [id number] KAYLA GALVEZ MD at 1436 CC: [id number] DICTATION DATE: 01/16/19 164 PSYCHIATRIC ARNP: 01/16/19 193 ADM IN [facility] [address] [id number]
[2019-01-17 20:29] VITALS: BP 117/50
--- NOTE | 2019-01-17 21:15 | NUR ---
RECEIVED IN DAYROOM. SOCIALIZING WITH PEERS. CALM AND COOPERATIVE WITH CARE AND ASSESSMENT. NO AGGRESSIVE BEHAVIORS. REDIRECT AND REORIENT NEEDED. RESTING IN BED WITH EYES CL0SED AT THIS TIME. CONTINUE PLAN OF CARE.
[2019-01-18 08:11] LABS: RAPID PLASMA REAGIN Non Reactive (Non Reactive)
[2019-01-18 08:12] VITALS: BP 152/54
--- NOTE | 2019-01-18 13:23 | NUR ---
PT IN DAYROOM ATTENDING GROUP WITH STAFF AND PEERS. AWAKE AND ALERT TO PERSON ONLY. CALM AND COOPERATIVE WITH ASSESSMENT. MED COMPLIANT. REDIRECT AND REORIENT NEEDED. NO BEHAVIORS NOTED AT THIS TIME. FALL PRECAUTIONS IN PLACE. WILL CPOC.
--- NOTE | 2019-01-18 14:23 | PN ---
PATIENT:VALENTIN YEUNG [place] MEDICAL RECORD: [id number] LOCATION:LINDA De Souza ADMISSION DATE: 01/16/19 PROGRESS NOTE DATE OF SERVICE: 01/17/2019 SUBJECTIVE: The patient's case was discussed with staff. She has no new complaint. OBJECTIVE: The patient is in good behavioral control. She has poor insight about her situation. She has not been actively aggressive today. ASSESSMENT: Dementia. PLAN: The patient will be maintained on current medicines, which I have reviewed. Her Depakote level is therapeutic at 59. She will be monitored for clinical changes. TRANSINT:[id number] Voice Confirmation ID: [id number] DOCUMENT ID: [id number] KAYLA GALVEZ MD at 1423 CC: [id number] DICTATION DATE: 01/17/19 145 INTERNATIONAL MARKETING INTERN: 01/17/192125 ADM IN [place] [place] [id number]
[2019-01-18 20:00] VITALS: BP 114/49
--- NOTE | 2019-01-18 23:34 | NUR ---
B.) PT IS ALERT AND ORIENTED TO SELF ONLY. SHE HAS POOR INSIGHT INTO HER SITUATION. SHE IS PLEASANT MOST OF THE TIME. SHE HAS PERIODS OF AGGITATION. SHE IS ABLE TO AMBULATE WITH HER WALKER. I.) REDIRECT OFTEN. PROVIDED PM MEDICATIONS. R.) PT IS DIFFICULT TO REDIRECT. COMPLIANT WITH ALL MEDICATIONS. P.) CONTINUE PLAN OF CARE
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
[2019-01-19 08:58] VITALS: BP 137/74
--- NOTE | 2019-01-19 10:00 | NUR ---
RECEIVED PT IN DINING ROOM FOR B'FAST, ALERT, CALM, COOPERATIVE. NO AGGRESION NOTED. MEDS ADMIN PER ORDERS WITH COMPLETE MED COMPLIANCE NOTED. COOPERATIVE WITH POC, CONT POC DIRECTED.
--- NOTE | 2019-01-19 11:13 | NUR ---
NUTRITION F/U PT TOLERATING REG DIET WTIH 95 TO 100% INTAKE RECENT MEALS. NO NEW WT AVAILABLE TO ASSESS. WILL CONTINUE TO PROVIDE DIET, MONITOR PO INTAKE AND ANY NEW WT WHEN AVAILABLE. RD FOLLOWING
--- NOTE | 2019-01-19 14:30 | PN ---
PATIENT:VALENTIN YEUNG MEDICAL RECORD: [id number] LOCATION:LINDA De Souza ADMISSION DATE: 01/16/19 PROGRESS NOTE DATE OF SERVICE: 01/18/2019 SUBJECTIVE: The patient's case was discussed with staff. She has no new complaint. OBJECTIVE: The patient denies that she would seek to harm herself or others. She generally tolerates her medicines well. Eye contact is fair. She has not made any delusional statements about people not being who they appear to be. ASSESSMENT: Dementia. PLAN: The patient's medicines have been reviewed. She is taking the Celexa for its antidepressant effect and the Risperdal for its antipsychotic effect. I did drop her Depakote dose a little bit. I do have a therapeutic blood level from admission and it may well have dropped below therapeutic. I will check another level. In addition to this, she is taking the Namenda and Aricept. She is also receiving trazodone to assist with sleep consolidation. TRANSINT:[id number] Voice Confirmation ID: [id number] DOCUMENT ID: [id number] KAYLA GALVEZ MD at 1430 CC: [id number] DICTATION DATE: 01/18/19 1429 RN NAVIGATOR: 01/18/19 2330 ADM IN [facility] [address] [id number]
[2019-01-19 20:20] VITALS: BP 113/41
--- NOTE | 2019-01-20 00:50 | NUR ---
B) Paieint is sleeping most of the shift, arrouses for care only I) Administered scheduled medications as ordered, R) Mediation compliant, sleeping quietly P) Continue plan of care.
--- NOTE | 2019-01-20 08:10 | NUR ---
PT SITTING IN W/C AT THIS TIME. RESP EVEN AND NONLABORED. NO ACUTE DISTRESS NOTED. PT IS ALERT AND ORIENTED TO SELF ONLY. PT CAN TRANSFER WITH ASSISTANCE. CHAIR ALARM IN PLACE AND ACTIVE. WILL CONT PLAN OF CARE.
[2019-01-20 08:57] VITALS: BP 145/61
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
--- NOTE | 2019-01-20 13:07 | NUR ---
PT IS CALM AT THIS TIME AND TALKING WITH STAFF. PT DID REFUSE LUNCH STATING SHE WASNT HUNGRY.
--- NOTE | 2019-01-20 15:13 | PN ---
PATIENT:VALENTIN YEUNG [place] MEDICAL RECORD: [id number] LOCATION:LINDA De Souza ADMISSION DATE: 01/16/19 PROGRESS NOTE DATE OF SERVICE: 01/19/2019 SUBJECTIVE: The patient's case was discussed with staff. She has no new complaint. OBJECTIVE: The patient is in good behavioral control today, but apparently was agitated last night. She has no recollection of the agitation. ASSESSMENT: Dementia. PLAN: The patient will be given trazodone at a higher dose. This is to assist with sleep consolidation. Her long-term prognosis is guarded. TRANSINT:[id number] Voice Confirmation ID: [id number] DOCUMENT ID: [id number] KAYLA GALVEZ MD at 1513 CC: [id number] DICTATION DATE: 01/19/19 1529 PRIEST: 01/19/19 2240 ADM IN [place] [id number] [place] [id number]
--- NOTE | 2019-01-20 17:57 | NUR ---
PT HAS HAD NO BEHAVIORS NOTED SINCE PRN GIVEN EARLIER THIS SHIFT. WILL CONT PLAN OF CARE. PT DID EAT 100% OF DINNER.
--- NOTE | 2019-01-20 19:37 | NUR ---
PATIENT IS CONFUSED, DEMANDING AT TIMES, COMPLIANT WITH MEDS, NO ADVERSE REACTIN NOTED TO MEDS, PATIENT REQUIRES A LOT OF ASSISTANCE WITH ADL'S. WILL FOLLOW POC
[2019-01-20 21:30] VITALS: BP 119/50
[2019-01-21 10:27] VITALS: BP 138/51
--- NOTE | 2019-01-21 10:38 | NUR ---
B) The patient is awake and alert, she said she did not want to get up this am, but she did not fight. No aggression noted. I) Provide prescribed meds. R) The patient is compliant with meds. She self propels in a w/c and she has poor insight into her situation. P) Continue POC.
--- NOTE | 2019-01-21 11:06 | PN ---
PATIENT:VALENTIN YEUNG [place] MEDICAL RECORD: [id number] LOCATION:LINDA De Souza ADMISSION DATE: 01/16/19 PROGRESS NOTE DATE OF SERVICE: 01/20/2019 SUBJECTIVE: The patient's case was discussed with staff. She has no new complaint. OBJECTIVE: The patient is in good behavioral control. She has limited insight about her situation. She has not been aggressive and she has not made any more delusional statements today. ASSESSMENT: Dementia. PLAN: Current medicines and therapies have been reviewed and will be maintained. Long-term prognosis is guarded. TRANSINT:[id number] Voice Confirmation ID: [id number] DOCUMENT ID: [id number] KAYLA GALVEZ MD at 1106 CC: [id number] DICTATION DATE: 01/20/19 1519 DRAPERY CUTTER MACHINE: 01/20/19 2306 ADM IN [address] [id number]
[2019-01-21 22:46] VITALS: BP 115/58
--- NOTE | 2019-01-22 00:22 | NUR ---
REC'D IN DAYROOM SITTING IN WHEELCHAIR. MOVES SELF AROUND ROOM WITH FEET. ORIENTED TO SELF ONLY. DELUSIONAL AND TALKING ABOUT THEY PUT IT THERE BECAUSE IT WOULD BE EASY TO GET TO AND THEN WAS TALKING ABOUT SHE PUT IT RIGHT HERE ON THIS ARM. UNABLE TO FOLLOW TOPIC OF CONVERSATION. ADMINISTER MEDS AND MONITOR COMPLIANCE. REORIENT NEEDED. MED COMPLIANT. POOR REORIENTATION DUE TO IMPAIRED ABILITY TO PROCESS AND COMPREHEND INFORMATION. CONTINUE POC AND PROVIDE SAFE ENVIRONMENT.
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
[2019-01-22 08:00] VITALS: BP 132/56
--- NOTE | 2019-01-22 10:45 | PN ---
PATIENT:VALENTIN YEUNG [place] MEDICAL RECORD: [id number] LOCATION:LINDA De Souza ADMISSION DATE: 01/16/19 PROGRESS NOTE DATE OF SERVICE: 01/21/2019 SUBJECTIVE: The patient's case was discussed with staff. She has no new complaint. OBJECTIVE: The patient is in good behavioral control with limited insight about her condition. She is tolerating her medicines well. Eye contact is fair. ASSESSMENT: Dementia. PLAN: Current medicines have been reviewed and will be maintained. Long-term prognosis is guarded. TRANSINT:[id number] Voice Confirmation ID: [id number] DOCUMENT ID: [id number] KAYLA GALVEZ MD at 1045 CC: [id number] DICTATION DATE: 01/21/19 1158 FORMULATION CHEMIST: 01/21/19 1227 ADM IN [address] [place] [address]
--- NOTE | 2019-01-22 18:48 | NUR ---
PT IS WATCHING T.V. AT THIS TIME. RESP EVEN AND NONLABORED. PT HAD A SHOWER THIS SHIFT. TOLERATED WELL. NO BEHAVIORS AT THIS TIME. PT IS ALERT AND ORIENTED X1. TRANSFERS WITH ASSISTANCE. CHAIR ALARM IN PLACE AND ACTIVE. WILL CONT PLAN OF CARE.
--- NOTE | 2019-01-22 20:00 | NUR ---
RECEIVED IN DAYROOM. SITTING IN A CHAIR WITH PEERS AT HER SIDE. CALM AND COOPERATIVE WITH CARE AND ASSESSMENT. REDIRECT AND REORIENT NEEDED. CONTINUES TO SIT CALMLY IN CHAIR. CONTINUE PLAN OF CARE
[2019-01-22 20:16] VITALS: BP 111/46
[2019-01-23 08:15] VITALS: BP 149/66
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
--- NOTE | 2019-01-23 15:38 | PN ---
PATIENT:VALENTIN YEUNG [place] MEDICAL RECORD: [id number] LOCATION:LINDA De Souza ADMISSION DATE: 01/16/19 PROGRESS NOTE DATE OF SERVICE: 01/22/2019 SUBJECTIVE: The patient's case was discussed with staff. She has no new complaint. OBJECTIVE: The patient is in good behavioral control. She denies intent to harm herself or others. She has not been aggressive. ASSESSMENT: Dementia. PLAN: I have reviewed the patient's current medications. Wednesday or Wednesday I will discuss the situation with her psychiatrist at [facility] and will come to some sort of decision about when she can be returned there. TRANSINT:[id number] Voice Confirmation ID: [id number] DOCUMENT ID: [id number] KAYLA GALVEZ MD at 1538 CC: [id number] DICTATION DATE: 01/22/19 1212 OXYACETYLENE TORCH OPERATOR: 01/22/19 1314 ADM IN [id number] [place] [address]
[2019-01-23 20:06] VITALS: BP 111/46
--- NOTE | 2019-01-23 21:05 | NUR ---
RECEIVED IN DAYROOM. SITTING WITH PEERS AT HER SIDE. CALM AND COOPERATIVE WITH CARE AND ASSESSMENT. REDIRECT AND REORIENT NEEDED. CONTINUES TO SIT QUIETLY IN CHAIR. CONTINUE PLAN OF CARE
--- NOTE | 2019-01-24 00:56 | NUR ---
SPOKE TO PETRA ARAMBULA RN AT [facility]. SHE REQUESTED AN UPDATE ON PT BUT DIDNT HAVE THE CODE WORD. I INFORMED HER THAT SHE NEEDED THE CODE WORD IN ORDER TO INQUIRE. SHE STATED " SHE HAS NEVER HAD A CODE WORD AND HAS OFTEN CALLED AND RECIEVED REPORT."
[2019-01-24 08:00] VITALS: BP 138/76
--- NOTE | 2019-01-24 09:59 | NUR ---
RECEIVED PT. IN DINING ROOM FOR B'FAST, ALERT, CALM, QUIET, NO AGGRESSION NOTED AT THIS TIME. MEDS ADMIN PER ORDERS WITH COMPLETE MED COMPLIANCE NOTED. COOPERATIVE WITH POC. CONT POC DIRECTED, MONITORING FOR AGGRESSION.
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
--- NOTE | 2019-01-24 19:41 | NUR ---
RECEIVED IN DAYROOM. SITTING IN A WHEELCHAIR WITH PEERS AT HER SIDE. CALM AND COOPERATIVE WITH CARE AND ASSESSMENT. NO SIGNS OPF AGGRESSION. REDIRECT AND REORIENT NEEDED. CONTINUES TO SIT QUIETLY, CONTINUE PLAN OF CARE
[2019-01-24 20:09] VITALS: BP 121/54
[2019-01-25 08:26] VITALS: BP 133/56
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
--- NOTE | 2019-01-25 12:53 | PN ---
PATIENT:VALENTIN YEUNG [place] MEDICAL RECORD: [id number] LOCATION:LINDA De Souza ADMISSION DATE: 01/16/19 PROGRESS NOTE DATE OF SERVICE: 01/24/2019 SUBJECTIVE: The patient's case was discussed with staff. She has no new complaint. OBJECTIVE: The patient is in good behavioral control. She did require p.r.n. medication yesterday and I increased the dose of her Risperdal yesterday. Today, she is in better behavioral control. ASSESSMENT: Dementia. PLAN: Current medicines have been reviewed and will be maintained. Long-term prognosis is guarded. TRANSINT:[id number] Voice Confirmation ID: [id number] DOCUMENT ID: [id number] KAYLA GALVEZ MD at 1253 CC: [id number] DICTATION DATE: 01/24/19 1131 CORK SLABS SAWYER: 01/24/19 1136 ADM IN [facility] [address] [place] [address]
--- NOTE | 2019-01-25 18:05 | NUR ---
PATIENT COMBATIVE WITH CARE, ATIVAN 0.5 MG AND HALDOL 2 MG ADMIN PO PER ORDERS.
--- NOTE | 2019-01-25 18:37 | NUR ---
RECEIVED IN DAYROOM. SITTING IN A WHEELCHAIR WITH PEER BY HER SIDE. CALM AND COOPERATIVE WITH CARE AND ASSESSMENT. NO SIGNS OF AGGRESSION. REDIRECT AND REORIENT NEEDED. CONTINUES TO SIT CALMLY IN DAYROOM. CONTINUE PLAN OF CARE
[2019-01-25 20:01] VITALS: BP 116/48
[2019-01-26 08:50] VITALS: BP 156/71
--- NOTE | 2019-01-26 10:37 | NUR ---
NUTRITION F/U PT TOLERATING REG DIET WITH 65 TO 100% INTAKE RECENT MEALS. +BM RECORDED 01/25/19. WT HAS BEEN STABLE. WILL CONTINUE TO PROVIDE DIET, MONITOR PO INTAKE AND WT. RD FOLLOWING
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
[2019-01-26 20:20] VITALS: BP 110/50
--- NOTE | 2019-01-26 21:40 | NUR ---
REC'D SITTING IN THE DAYROOM. ORIENTED TO SELF ONLY. RELATES IF SHE DOESN'T THINK ABOUT IT THEN SHE DOESN'T WORRY ABOUT IT. SOCIALLY WITHDRAWN. APPROPRIATE WITH STAFF. ADMINISTER MEDS AND MONITOR COMPLIANCE. REORIENT NEEDED. PT INITIALLY WAS NOT GOING TO TAKE MEDS HOWEVER TOOK MEDICATIONS WHEN WAS OFFERED APPLE JUICE. POOR REORIENTATION DUE TO IMPAIRED ABILITY TO PROCESS AND RETAIN INFORMATION. CONTINUE POC AND PROVIDE SAFE ENVIRONMENT.
--- NOTE | 2019-01-27 07:27 | NUR ---
B) The patient is awake and alert, she has poor insight into her situation. She self propels in her w/c. She has not shown aggression this am, but she is a bit irritable and does not want to get up. I) Provide prescribed meds. R) The patient is compliant with meds. P) Continue POC.
[2019-01-27 09:39] VITALS: BP 124/43
--- NOTE | 2019-01-27 14:51 | PN ---
PATIENT:VALENTIN YEUNG [place] MEDICAL RECORD: [id number] LOCATION:LINDA De Souza ADMISSION DATE: 01/16/19 PROGRESS NOTE DATE OF SERVICE: 01/26/2019 SUBJECTIVE: The patient's case was discussed with staff. She has no new complaint. OBJECTIVE: The patient denies intent to harm herself or others. She is tolerating her medicines well. She did become angry and yelled at one of the nurses today. When questioned about this, she denied it and I do think had any recollection of it having happened. ASSESSMENT: Dementia. PLAN: The patient will have another Depakote level checked. I suspect it is still going to be therapeutic, but it has not been checked for a week, so I will check this and then probably move toward having her discharged after the weekend. TRANSINT:[id number] Voice Confirmation ID: [id number] DOCUMENT ID: [id number] KAYLA GALVEZ MD at 1451 CC: [id number] DICTATION DATE: 01/26/19 152 FIELD OPERATIONS FARM MANAGER: 01/26/19 1539 ADM IN [facility] [address] [place] [address]
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
[2019-01-27 20:00] VITALS: BP 113/46
--- NOTE | 2019-01-27 22:12 | NUR ---
B.) PT IS RECEIVED IN THE DAYROOM. SHE IS ALERT AND ORIENTED TO SELF ONLY. SHE HAS POOR INSIGHT INTO HER SITUATION. SHE HAS VERBAL ALTERCATIONS WITH PEER OVER A WALKER. I.) REDIRECT NEEDED. PROVIDED PM MEDICTIONS. R.) DIFFICULT TO REDIRECT. COMPLIANT WITH ALL MEDICATIONS. P.) CONTINUE PLAN OF CARE
--- NOTE | 2019-01-28 08:02 | PN ---
PATIENT:VALENTIN YEUNG [place] MEDICAL RECORD: [id number] LOCATION:LINDA De Souza ADMISSION DATE: 01/16/19 PROGRESS NOTE DATE OF SERVICE: 01/27/2019 SUBJECTIVE: The patient's case was discussed with staff. She has no new complaint. OBJECTIVE: The patient has been irritable, but not openly aggressive in any particular way. ASSESSMENT: Dementia. PLAN: Current medicines have been reviewed and will be maintained. The patient has a subtherapeutic Depakote level at this time. I am going to raise her Depakote dose. TRANSINT:[id number] Voice Confirmation ID: [id number] DOCUMENT ID: [id number] KAYLA GALVEZ MD at 0802 CC: [id number] DICTATION DATE: 01/27/19 150 AUDIO VISUAL FACILITIES ENGINEER: 01/27/192056 ADM IN [facility] [address] [place] [address]
[2019-01-28 09:16] VITALS: BP 125/59
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
--- NOTE | 2019-01-28 11:00 | NUR ---
The patient is self propelling in her w/c and she is not slowing down, but she has not made anymore aggressive threats or verbal inuendos. Will continue to monitor.
--- NOTE | 2019-01-28 19:44 | NUR ---
RECEIVED IN DAYROOM. SOCIALIZING WITH STAFF AND PEERS. CALM AND COOPERATIVE WITH CARE AND ASSESSMENT. NO AGGRESSIVE BEHAVIORS. REDIRECT AND REORIENT NEEDED. CONTINUES TO SIT IN DAYROOM WITH PEERS WHILE WAITING ON PM MEDICATIONS. CONTINUE PLAN OF CARE.
[2019-01-28 20:00] VITALS: BP 126/48
[2019-01-29 08:00] VITALS: BP 176/85
--- NOTE | 2019-01-29 09:33 | NUR ---
PATIENT EXPERIENCING ANXIETY, AGITATION, AND AGGRESSION. HITTING AT STAFF, ATTEMPTING TO SPIT ON STAFF, SLUNG BREAKFAST TRAY OFF TABLE AND ONTO FLOOR, BREAKING HER PLATE. PT ALSO REFUSED ALL MORNING MEDS EXCEPT DEPAKOTE. ATIVAN 0.5 MG AND HALDOL 2 MG ADMIN.
--- NOTE | 2019-01-29 16:43 | NUR ---
PATIENT INITIALLY AGITATED EARLIER IN SHIFT. SINCE A PRN THIS MORNING, PT. HAS REMAINED CALM AND ALERT. NO ISSUES AT MEAL TIME. MEALS SENT ON UNBREAKABLE HUIZAR SINCE PT SHATTERED HER PLATE THIS MORNING. PATIENT REFUSED MORNING MEDS EXCEPT FOR DEPAKOTE. PT. VERY SUSPICIOUS OF STAFF AND QUITE BELLIGERANT AT TIMES. CONT POC DIRECTED.
[2019-01-29 20:10] VITALS: BP 121/53
--- NOTE | 2019-01-29 22:12 | NUR ---
RECEIVED IN DAYROOM. SITTING IN A WHEELCHAIR WITH PEERS AT HER SIDE. NOT SOCIALIZING. CALM AND COOPERATIVE WITH CARE AND ASSESSMENT. NO SIGNS OF AGGRESSION. REDIRECT AND REORIENT NEEDED. RESTING IN BED WITH EYES EYES CLOSED AT THIS TIME. CONTINUE PLAN OF CARE
[2019-01-30 08:28] VITALS: BP 125/93
--- NOTE | 2019-01-30 15:30 | NUR ---
RECEIVED PT THIS MORNING AT B'FAST TIME. CALM, PLEASANT, TALKATIVE. MEDS ADMIN PER ORDERS WITH COMPLETE COMPLIANCE NOTED. COOPERATIVE WITH PLAN OF CARE. NO ADVERSE BEHAVIORS AT ALL. CONT POC DIRECTED.
--- NOTE | 2019-01-30 15:49 | PN ---
PATIENT:VALENTIN YEUNG [place] MEDICAL RECORD: [id number] LOCATION:LINDA De Souza ADMISSION DATE: 01/16/19 PROGRESS NOTE DATE OF SERVICE: 01/29/2019 SUBJECTIVE: The patient's case was discussed with staff. She has no new complaint. OBJECTIVE: The patient is only oriented to person. She received p.r.n. medication yesterday because of some agitation. She has no recollection of the behaviors. ASSESSMENT: No change in diagnoses. PLAN: Brief supportive and educational interventions were made. Long-term prognosis is guarded. TRANSINT:[id number] Voice Confirmation ID: [id number] DOCUMENT ID: [id number] KAYLA GALVEZ MD at 1549 CC: [id number] DICTATION DATE: 01/29/19 1156 SUPERVISOR POLICY CHANGE CLERKS: 01/29/19 1203 ADM IN [id number] [place] [address]
--- NOTE | 2019-01-30 15:49 | PN ---
PATIENT:VALENTIN YEUNG [place] MEDICAL RECORD: [id number] LOCATION:LINDA De Souza ADMISSION DATE: 01/16/19 PROGRESS NOTE DATE OF SERVICE: 01/28/2019 SUBJECTIVE: The patient's case was discussed with staff. She has no new complaint. OBJECTIVE: The patient denies intent to harm herself or others. She is tolerating her medicines well. ASSESSMENT: Dementia. PLAN: The patient was little agitated with another patient today. Apparently, they both felt that the same walker was theirs. It turns out the walker belonged to the other woman, but it was still an exchange of angry words, but there was no hitting and neither patient required p.r.n. medication. After they were and the ownership of the walker was settled, both calmed down. TRANSINT:[id number] Voice Confirmation ID: [id number] DOCUMENT ID: [id number] KAYLA GALVEZ MD at 1549 CC: [id number] DICTATION DATE: 01/28/19829 SLOT FLOORMAN: 01/28/19 0843 ADM IN [facility] [address] [id number]
[2019-01-30 20:05] VITALS: BP 128/46
--- NOTE | 2019-01-30 20:39 | NUR ---
RECEIVED IN DAYROOM. SITTING IN A QUIETLY IN A CHAIR. CALM AND COOPERATIVE WITH CARE AND ASSESSMENT. NO SIGNS OF AGGRESSION. REDIRECT AND REORIENT NEEDED. CONTINUES TO SIT QUIETLY. CONTINUE PLAN OF CARE
[2019-01-31 08:18] VITALS: BP 127/46
--- NOTE | 2019-01-31 14:56 | NUR ---
Nutrition Follow-up: Diet: Regular PO intake: 100% x last 6 meals as recorded Wt: 189# (01/29/19); Admit wt: 188# (01/16/19). Last BM 01/30/19. Labs, meds, and nursing skin assessment all reviewed. Continue current nutrition regimen. RD Following.
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
--- NOTE | 2019-01-31 20:46 | NUR ---
RECEIVED IN DAYROOM. UP USING WALKER AT TIMES. EASILY AGGRAVATED. ATTEMPTED TO SLAP AT MHT. REDIRECTED AND REORIENTED EASILY. COOPERATIVE WITH CARE. SITTING CALMLY IN CHAIR EATING PM SNACK AT THIS TIME. CONTINUE PLAN OF CARE
[2019-01-31 21:05] VITALS: BP 128/60
[2019-02-01 08:00] VITALS: BP 128/66
--- NOTE | 2019-02-01 10:00 | NUR ---
AWAKE AND ALERT,, BUT CONFUSION NOTED. CALM AND COOPERATIVE WITH CARE AND ASSESSMENT. ADMINISTER PRESCRIBED MEDICATIONS. COMPLIANT WITH MEDICATIONS. FALL PRECAUTIONS IN PLACE. CONTINUE PLAN OF CARE.
--- NOTE | 2019-02-01 14:20 | PN ---
PATIENT:VALENTIN YEUNG [place] MEDICAL RECORD: [id number] LOCATION:LINDA De Souza ADMISSION DATE: 01/16/19 PROGRESS NOTE DATE OF SERVICE: 01/31/2019 SUBJECTIVE: The patient's case was discussed with staff. She has no new complaint. OBJECTIVE: The patient denies intent to harm herself or others. She is tolerating her medicines well. She was agitated earlier today but did not require p.r.n. medications. ASSESSMENT: Dementia. PLAN: The patient's Risperdal was going to be increased slightly. Her long-term prognosis is guarded. TRANSINT:[id number] Voice Confirmation ID: [id number] DOCUMENT ID: [id number] KAYLA GALVEZ MD at 1420 CC: [id number] DICTATION DATE: 01/31/19 1547 ADULT NURSE PRACTITIONER: 01/31/19 2206 ADM IN [id number] [place] [id number]
[2019-02-01 20:00] VITALS: BP 123/56
--- NOTE | 2019-02-01 22:11 | NUR ---
B.) PT IS ALERT AND ORIENTED TO SELF ONLY. SHE HAS POOR INSIGHT INTO HER SITUATION. SHE IS ABLE TO AMBULATE WITH HER WALKER. SHE IS COOPERATIVE WITH STAFF. I.) PROVIDED PM MEDICATIONS. R.) COMPLIANT WITH ALL MEDICATIONS. P.) CONTINUE PLAN OF CARE
[2019-02-02 08:36] VITALS: BP 131/55
--- NOTE | 2019-02-02 10:01 | NUR ---
PATIENT IS ALERT AND ORIENTED TO SELF ONLY. CAN BE PLESANT WITH STAFF. NO C/O VOICED THIS AM. NO DISTRESS NOTED. PT HAS POOR INSIGHT TO SITUTION. NO BEHAVIORS NOTED THUS FAR THIS SHIFT. PT COMPLIANT WITH MEDS, VITALS AND ASSESSMENT. PT ABLE TO VOICE SOME NEEDS. CHAIR ALARM IN PLACE AND ACTIVE. WILL CONT PLAN OF CARE.
--- NOTE | 2019-02-02 11:00 | NUR ---
NUTRITION F/U PT TOLERATING REG DIET WITH GOOD INTAKE RECENT MEALS. WT REMAINS STABLE. WILL CONTINUE TO PROVIDE DIET, MONITOR PO INTAKE AND WT. RD FOLLOWING
--- NOTE | 2019-02-02 15:25 | PN ---
PATIENT:VALENTIN YEUNG [place] MEDICAL RECORD: [id number] LOCATION:LINDA De Souza ADMISSION DATE: 01/16/19 PROGRESS NOTE DATE OF SERVICE: 02/01/2019 SUBJECTIVE: The patient's case was discussed with staff. She has no new complaint. OBJECTIVE: The patient is quite confused, but much more pleasant today. She is interacting some with staff. ASSESSMENT: Dementia. PLAN: I think the patient's improvement is related to the increase in the Risperdal. I am going to leave the dose as it is today. It is a higher dose than I would ordinarily use in someone her age, but she is simply unmanageable in a long-term care setting and I think weighing the relative risks and benefits that it is indicated. TRANSINT:[id number] Voice Confirmation ID: [id number] DOCUMENT ID: [id number] KAYLA GALVEZ MD at 1525 CC: [id number] DICTATION DATE: 02/01/19 1528 WEIGHT LOSS CONSULTANT: 02/01/19 2338 ADM IN [id number] [place] [address]
[2019-02-02 20:00] VITALS: BP 105/51
--- NOTE | 2019-02-02 22:23 | NUR ---
REC'D SITTING IN THE DAYROOM TALKING TO A PEER. CONFUSED AND DISORIENTED. RELATED SHE IS AT "[employer] THOUGHT THE DAY IS WEDNESDAY. "TWO ON MY SCALE TO COME." BEHAVIOR PLEASANT HOWEVER VERY CONFUSED. ADMINISTER MEDS AND MONITOR COMPLIANCE. REORIENT Q SHIFT AND NEEDED. MED COMPLIANT. POOR REORIENTATION DUE TO IMPAIRED ABILITY TO PROCESS AND RETAIN INFORMATION. CONTINUE POC AND PROVIDE SAFE ENVIRONMENT.
[2019-02-03 08:05] VITALS: BP 156/68
--- NOTE | 2019-02-03 09:40 | NUR ---
PATIENT SITTING IN CHAIR WITH EYES CLOSED. RESP EVEN AND NONLABORED. NO ACUTE DISTRESS NOTED. PT IS ALERT AND ORIENTED TO SELF ONLY WITH CONFUSION NOTED. PT CAN MAKE SOME NEEDS KNOWN AT TIMES. PT IS PLESANT WITH STAFF AND PEERS. PT COMPLIANT WITH MEDS, VITALS AND ASSESSMENT. CHAIR ALARM IN PLACE AND ACTIVE. WILL CONT PLAN OF CARE.
--- NOTE | 2019-02-03 14:32 | PN ---
PATIENT:VALENTIN YEUNG [place] MEDICAL RECORD: [id number] LOCATION:LINDA De Souza ADMISSION DATE: 01/16/19 PROGRESS NOTE DATE OF SERVICE: 02/02/2019 SUBJECTIVE: The patient's case was discussed with staff. She has no new complaint. OBJECTIVE: The patient denies intent to harm herself or others. She is tolerating her current medicines reasonably well. ASSESSMENT: Dementia. PLAN: Brief supportive and educational interventions were made. Long-term prognosis is guarded. TRANSINT:[id number] Voice Confirmation ID: [id number] DOCUMENT ID: [id number] KAYLA GALVEZ MD at 1432 CC: [id number] DICTATION DATE: 02/02/19 1543 INDUSTRIAL ANALYST: 02/02/19 2159 ADM IN [place] [id number] [place] [id number]
[2019-02-03 21:35] VITALS: BP 107/41
--- NOTE | 2019-02-03 22:28 | NUR ---
REC'D SITTING IN WHEELCHAIR. MOBILE ON UNIT IN WHEELCHAIR. CONFUSED AND DISORIENTED. PLEASANT TO STAFF WHEN APPROACHED. ADMINISTER MEDS AND MONITOR COMPLIANCE. REORIENT NEEDED. MED COMPLIANT. POOR REORIENTATION DUE TO IMPAIRED ABILITY TO PROCESS AND RETAIN INFORMATION. CONTINUE POC AND PROVIDE SAFE ENVIRONMENT.
--- NOTE | 2019-02-04 10:02 | NUR ---
PT SITTING IN CHAIR SPEAKING WITH A PEER. RESP EVEN AND NONLABORED. NO ACUTE DISTRESS NOTED. PT IS VERY PLESANT WITH STAFF AND PEERS TODAY. PT CAN MAKE SOME NEEDS KNOWN. PT IS COMPLIANT WITH STAFF ON MEDS, VITALS AND ASSESSMENTS. NO BEHAVIORS NOTED FROM THIS SHIFT AND PREVIOUS SHIFT. CHAIR ALARM IN PLACE AND ACTIVE. NO AGGRESSION NOTED. WILL CONT PLAN OF CARE.
[2019-02-04 10:34] VITALS: BP 144/57
--- NOTE | 2019-02-04 10:52 | NUR ---
The patient had been sitting in the dinig room alone and she said she was thirsty. Shaq Jacobson RN went to the refrigerator and was going to get the patient a soft drink. The patient became very angry and began yelling at Andersonadarsh telling her she has no right to be in her refrigerator, she told Shaq "This is my house and I have worked hard for it and I will not have anyone going through my things. " She began to yell and get closer and closer to Andersonadarsh and yell more and more. The patient would not accept an apology or redirection she became more irritated. Provided the patient Ativan 0.5 mg IM in her left deltoid. The patient then tried to kick and hit. The patient is removed from the other patients and staff to calm down.
--- NOTE | 2019-02-04 12:27 | PN ---
PATIENT:VALENTIN YEUNG [place] MEDICAL RECORD: [id number] LOCATION:CarlosXiaoSULEIMAN DavidLeslie ADMISSION DATE: 01/16/19 PROGRESS NOTE DATE OF SERVICE: 02/03/2019 SUBJECTIVE: The patient's case was discussed with staff. She has no new complaint. OBJECTIVE: The patient is eating well and sleeping well. She has not been aggressive today and if this level of improvement continues, I anticipate she can reasonably be transitioned back to the intermediate soon. ASSESSMENT: Dementia. PLAN: As above. Current medicines will be maintained and the patient will likely be discharged early next week. TRANSINT:[id number] Voice Confirmation ID: [id number] DOCUMENT ID: [id number] KAYLA GALVEZ MD at 1227 CC: [id number] DICTATION DATE: 02/03/19 1433 CREW CALLER: 02/03/19 1531 ADM IN [id number] [place] [id number]
--- NOTE | 2019-02-04 12:34 | NUR ---
The patient is calm now she is not yelling, she is sitting with other patients and eating lunch. She is not trying to fight with staff or peers at this time.
[2019-02-04 20:04] VITALS: BP 128/54
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
--- NOTE | 2019-02-05 08:35 | NUR ---
PT SITTING IN WHEELCHAIR IN DINING AREA EATING BREAKFAST. NO ACUTE DISTRESS NOTED. PT STATED SHE WAS HAVING A GOOD DAY. PT COMPLIANT WITH MEDS, VITALS AND ASSESSMENT. PT HAS HAD NO AGGRESSIVE BEHAVIOR NOTED AT THIS TIME. NO REPORTED ON PREVIOUS SHIFT. CHAIR ALARM IN PLACE AND ACTIVE. WILL CONT PLAN OF CARE.
[2019-02-05 09:05] VITALS: BP 122/56
--- NOTE | 2019-02-05 17:58 | NUR ---
PT HAS HAD NO BEHAVIORS THIS SHIFT. NO VERBAL AGGRESSION NOTED. PT TOOK MEDICAITIONS. ASSISTED PT TO STAND SEVERAL TIMES TO PREVENT STIFFNESS. PT TOLERTATED WELL. CHAIR ALARM IN PLACE AND ACTIVE. WILL CONT PLAAN OF CARE.
--- NOTE | 2019-02-05 21:27 | NUR ---
RECEIVED IN PATIENT ROOM. GETTING READY FOR BED. CALM AND COOPERATIVE WITH CARE AND ASSESSMENT. NO AGGRESSIVE BEHAVIORS. REDIRECT AND REORIENT NEEDED. RESTING IN BED WITH EYES CLOSED AT THIS TIME. CONTINUE PLAN OF CARE.
[2019-02-06 10:44] VITALS: BP 123/60
--- NOTE | 2019-02-06 14:01 | PN ---
PATIENT:VALENTIN YEUNG [place] MEDICAL RECORD: [id number] LOCATION:LINDA De Souza ADMISSION DATE: 01/16/19 PROGRESS NOTE DATE OF SERVICE: 02/04/2019 SUBJECTIVE: The patient's case was discussed with staff. She has no new complaint. OBJECTIVE: The patient was agitated today and disruptive. She required an injection of Haldol and Ativan. It seems to have been effective and she is calmer. She is disorganized in her thought processes, but eating and sleeping well. ASSESSMENT: Dementia. PLAN: Current medicines have been reviewed and will be maintained. Her long-term prognosis is guarded. TRANSINT:[id number] Voice Confirmation ID: [id number] DOCUMENT ID: [id number] KAYLA GALVEZ MD at 1401 CC: [id number] DICTATION DATE: 02/04/19 1228 FREELANCE PATTERNMAKER: 02/04/19 1237 ADM IN [address] [place] [address]
--- NOTE | 2019-02-06 17:37 | NUR ---
PATIENT HAS BEEN COOPERATIVE AND QUITE PLEASANT THIS SHIFT, CONT CONFUSED, COMPLIANT WITH MEDS, NO AGGRESSION NOTED. COOPERATIVE WITH PLAN OF CARE, CONT POC DIRECTED.
[2019-02-06 21:37] VITALS: BP 125/57
--- NOTE | 2019-02-06 22:53 | NUR ---
RECEIVED IN HALLWAY OUTSIDE OF NURSES STAION. MOVING ABOUT IN A WHEELCHAIR. CALM AND COOPERATIVE WITH CARE AND ASSESSMENT. NO SIGNS OF AGGRESSION. REDIRECT AND REORIENT NEEDED. RESTING IN BED WITH EYES CLOSED AT THIS TIME. CONTINUE PLAN OF CARE
[2019-02-07 08:00] VITALS: BP 126/54
--- NOTE | 2019-02-07 10:00 | NUR ---
PATIENT HAS BEEN CALM AND COOPERATIVE WITH CARE AND ASSESSMENT, ADMINISTERED PRESCRIBED MEDSICATIONS WITH COMPLETE COMPLIANCE. REDIRECT AND REORIENT NEEDED. CONTINUE PLAN OF CARE.
--- NOTE | 2019-02-07 12:52 | PN ---
PATIENT:VALENTIN YEUNG [place] MEDICAL RECORD: [id number] LOCATION:LINDA De Souza ADMISSION DATE: 01/16/19 PROGRESS NOTE DATE OF SERVICE: 02/06/2019 SUBJECTIVE: The patient's case was discussed with staff. She has no new complaint. OBJECTIVE: The patient is in good behavioral control with limited insight about her condition. She does tolerate her medicines well. ASSESSMENT: Dementia. PLAN: Current medicines have been reviewed and will be maintained. The patient is in good behavioral control at this point. I anticipate if this continues, she can reasonably be transitioned out of the hospital. I will check another Depakote level and we will discuss her discharge planning with the treatment team tomorrow. TRANSINT:[id number] Voice Confirmation ID: [id number] DOCUMENT ID: [id number] KAYLA GALVEZ MD at 1252 CC: [id number] DICTATION DATE: 02/06/19 170 TDP DISPLAYS ANALYST: 02/07/19 0137 ADM IN [id number] [place] [address]
[2019-02-07 20:00] VITALS: BP 108/52
--- NOTE | 2019-02-07 21:52 | NUR ---
RECEIVED IN DAYROOM. SOCIALIZING WITH STAFF. CALM AND COOPERATIVE WITH CARE AND ASSESSMENT. NO AGGRESSIVE BEHAVIORS. REDIRECT AND REORIENT NEEDED. RESTING IN BED WITH EYES OPEN AT THIS TIME. CONTINUE PLAN OF CARE.
[2019-02-08 08:42] VITALS: BP 137/66
--- NOTE | 2019-02-08 11:11 | NUR ---
Nutrition Follow-up: Diet: Regular PO inake: 90-100% Significant meds: lasix, miralax. Labs and skin assessment reviewed. Last BM= 02/07/19. Wt: 189# (02/05/19); Admit wt: 188# (01/16/19). Continue current nutrition regimen. RD Following.
--- NOTE | 2019-02-08 12:02 | PN ---
PATIENT:VALENTIN YEUNG [place] MEDICAL RECORD: [id number] LOCATION:LINDA De Souza ADMISSION DATE: 01/16/19 PROGRESS NOTE DATE OF SERVICE: 02/07/2019 SUBJECTIVE: The patient's case was discussed with staff. She has no new complaint. OBJECTIVE: The patient is in good behavioral control with limited insight about her condition. She does tolerate her medicines well. ASSESSMENT: Dementia. PLAN: The patient yesterday made suicidal statements. She has no recollection of doing so today. I think this was something that was related to her being frustrated and not an actual suicidal situation. I will maintain her on current medicines. I anticipate she can be transitioned out of the hospital soon. TRANSINT:[id number] Voice Confirmation ID: [id number] DOCUMENT ID: [id number] KAYLA GALVEZ MD at 1202 CC: [id number] DICTATION DATE: 02/07/19 1254 MULE SPINNER: 02/07/19 1317 ADM IN [place] [id number] [place] [address]
[2019-02-08] MEDS ORDERED: NAMENDA5 MG PO (12:24)
[2019-02-08] MEDS ORDERED: RisperDAL PO ×2 (12:24)
[2019-02-08] MEDS ORDERED: DESERYL PO (12:24)
[2019-02-08] MEDS ORDERED: Chloraseptic Spray [ TOPICAL (12:25)
[2019-02-08] MEDS ORDERED: REMOVE PATCH TD (12:25)
[2019-02-08] MEDS ORDERED: LIDODERM 5 %1 PATCH TRANSDERM (12:25)
--- NOTE | 2019-02-08 21:17 | NUR ---
PATIENT RECEIVED IN DAYROOM IN WHEELCHAIR, SHE IS ABLE TO SELF-PROPEL, HER AFFECT IS GOOD, SHE IS SMILING AND LAUGHING WITH OTHERS, COMPLIANT WITH MEDS. WILL FOLLOW POC
[2019-02-08 23:46] VITALS: BP 97/45
--- NOTE | 2019-02-09 08:18 | NUR ---
PT SITTING IN WHEELCHAIR AWAITING BREAKFAST. RESP EVEN AND NONLABORED. NO ACUTE DISTRESS NOTED. PT IS IN A VERY PLESANT MOOD. NO BEHAVIOR NOTED FROM PREVIOUS SHIFT. PT IS CONFUSED, ALERT TO SELF ONLY. REDIRECT NEEDED. PT COMPLIANT WITH MEDS, VITALS AND ASSESSMENT. CHAIR ALARM IN PLACE AND ACTIVE. WILL CONT PLAN OF CARE.
--- NOTE | 2019-02-09 08:44 | NUR ---
SPOKE WITH PAT AT [facility] ABOUT A PICKUP TIME FOR PT. NURSE DIRECTED ME TO [facility]. SHE REQUESTED A PRIMO AND APPLICATION TO SET UP A PICKUP TIME. WILL FAX PAPERWORK.
[2019-02-09 09:19] VITALS: BP 161/70
--- NOTE | 2019-02-09 10:51 | NUR ---
NUTRITION F/U CHART REVIEWED, WT CURRENTLY STABLE. CONSUMING ~90 TO 100% RECENT MEALS. WILL CONTINUE TO PROVIDE REG DIET, MONITOR PO INTAKE AND WT. RD FOLLOWING
--- NOTE | 2019-02-09 11:00 | NUR ---
CALLED TO GIVE REPORT. PRIMO HAS BEEN FAXED TO GIVEN NUMBER. RECHECKED TIME FOR NURSE. PAPERWORK SENT WITH PT AND FAXED.
--- NOTE | 2019-02-09 11:26 | NUR ---
PATIENT DISCHARGED BACK TO [facility]. PT BELONGINGS AND PAPERWORK GIVEN TO TRANSPORT TECHS. PT WAS IN A GOOD MOOD WHEN DISCHARGING. ALL MORNING MEDS GIVEN AND TAKEN. WALKER SENT WITH PT WELL. STABLE AT TIME OF TRANSFER.
--- NOTE | 2019-02-09 13:51 | PN ---
PATIENT:VALENTIN YEUNG SYLVAIN MEDICAL RECORD: [id number] LOCATION:[facility] ADMISSION DATE: 01/16/19 PROGRESS NOTE DATE OF SERVICE: 02/08/2019 SUBJECTIVE: The patient's case was discussed with staff. She has no new complaint. OBJECTIVE: The patient is in good behavioral control, although she is severely impaired cognitively. She has not been disruptive or aggressive in any serious way for the past several days. I believe she can reasonably be transitioned out of the hospital soon. ASSESSMENT: Dementia. PLAN: The patient's Depakote level is subtherapeutic, but she has had an adequate clinical response to it. She will be monitored for clinical changes. Her long-term prognosis is guarded. TRANSINT:[id number] Voice Confirmation ID: [id number] DOCUMENT ID: [id number] KAYLA GALVEZ MD at 1351 CC: [id number] DICTATION DATE: 02/08/19 1222 RAILROAD WORKER: 02/08/19 1239 DIS IN 02/09/19 [id number] [place] [address]
--- NOTE | 2019-02-10 14:05 | PN ---
PATIENT:VALENTIN YEUNG SYLVAIN MEDICAL RECORD: [id number] LOCATION:[facility] ADMISSION DATE: 01/16/19 PROGRESS NOTE DATE OF SERVICE: 02/09/2019 SUBJECTIVE: The patient's case was discussed with staff. She has no new complaint. OBJECTIVE: The patient is in good behavioral control. She has poor insight about her condition and no evidence of acute dangerousness. ASSESSMENT: Dementia. PLAN: The patient will be transitioned back to the [facility] for a residential care. I believe it is unrealistic to expect that she would not have occasional behavioral outbursts, but on the whole the frequency and intensity is dramatically better. TRANSINT:[id number] Voice Confirmation ID: [id number] DOCUMENT ID: [id number] KAYLA GALVEZ MD at 1405 CC: [id number] DICTATION DATE: 02/09/19 1548 METAL RIVETING MACHINE OPERATOR: 02/10/19 0006 DIS IN 02/09/19 [id number] [place] [address]
--- NOTE | 2019-02-11 12:13 | DS ---
PATIENT:VALENTIN YEUNG :31 MEDICAL RECORD: [id number] DISCHARGE SUMMARY ADMISSION DATE: 01/16/19 DISCHARGE DATE: 02/09/19 IDENTIFYING DATA: The patient is 84 years old and she is known to me from previous clinical contact. CHIEF COMPLAINT: Aggression. HISTORY OF PRESENT ILLNESS: The patient lives in the [facility]. She has a known history of dementia. She has been agitated, disruptive, and aggressive with staff. She has made a number of delusional statements about people not being who they appear to be. She is clearly impaired when interviewed and has no real work recollection of the events that precipitated the admission. She has actually only oriented to person and cannot even tell me her date of . HOSPITAL COURSE: The patient was admitted to the hospital and was fully evaluated from both a medical, psychological, and social standpoint. She was treated with both memory enhancing and mood stabilizing and antipsychotic medications. She had significant and persistent behavior outbursts that required significant adjustment in her medications and a reasonable balance of target symptoms and medications achieved and she was subsequently transitioned back to the [facility]. DISCHARGE DIAGNOSES: AXIS I: Advanced major neurocognitive disorder of the Alzheimer's type with behavioral disturbances. AXIS II: None. AXIS III: Hypothyroidism. AXIS IV: Moderate stressors. AXIS V: Global assessment of functioning is 35. PLAN: At the time of discharge, the patient was in good behavioral control with limited insight about her condition. She was tolerating her medicines well. She does not represent an acute risk to herself or others and followup is to be with her primary care [facility] physician and the staff psychiatrist who works at the [facility]. TRANSINT:[id number] Voice Confirmation ID: [id number] DOCUMENT ID: [id number] KAYLA GALVEZ MD at 1213 CC: [id number] DICTATION DATE: 02/10/19 1416 ASSOCIATE BUSINESS ANALYST: 02/11/19 0327 DIS IN 02/09/19 [id number] [place] [address]
== END 2019-02-09 11:00 | DRG 57 ==
LOC: D.PSYCH 11:24
PROVIDERS: ADMIT Psychiatry & Neurology Psychiatry; ATTEND Psychiatry & Neurology Psychiatry
DX: G30.9 Alzheimer's disease, unspecified (principal); F02.81 Dementia in other diseases classified elsewhere, unspecified severity, with behavioral disturbance; E03.9 Hypothyroidism, unspecified; M19.90 Unspecified osteoarthritis, unspecified site; K21.9 Gastro-esophageal reflux disease without esophagitis; D64.9 Anemia, unspecified; K59.00 Constipation, unspecified; F41.8 Other specified anxiety disorders; I10 Essential (primary) hypertension; J02.9 Acute pharyngitis, unspecified